=== PATIENT | female | born 1995 | race Caucasian/White ===

== ENCOUNTER → 2016-11-07 | Outpatient (CLI) | payer OTHER ==
--- NOTE | 2016-11-08 11:45 | US ---
EXAMINATION TYPE: US abdomen complete DATE OF EXAM: 11/07/2016 11:56 AM COMPARISON: NONE History: Left lower quadrant, right lower quadrant pain The liver span is within normal limits, no mass. Gallbladder shows no abnormal luminal echo, there is no wall thickening or pericholecystic fluid. Pancreas shows an unremarkable appearance as visualized . Common bile duct does not appear dilated. Spleen is normal. Right kidney is 10.3 cm, left kidney 10 .1 cm, no hydronephrosis bilaterally. Abdominal aorta shows no aneurysm. Visualized inferior vena cav a is unremarkable as seen. Bilateral ureteral jets are noted. IMPRESSION: No significant abnormality
--- NOTE | 2016-11-08 11:51 | US ---
Pelvic ultrasound HISTORY: Right and left lower quadrant pain, lower abdomen pain Grayscale, color Doppler imaging performed of the pelvis. Transabdominal pelvic ultrasound scanning. The uterus measures 6.4 x 2.6 x 4.1 cm. Uterus is anteverted. Endometrial stripe thickness is approxi mately 3 mm. No evident free fluid. Right ovary is 3.9 x 1.9 x 2.5 cm, left ovary is 3 x 1.5 x 3.5 cm. Follicles a re associated with both ovaries. IMPRESSION: No significant abnormalities evident.
== END | disposition home or self-care (01) ==
LOC: RADUSYALE 09:21
PROVIDERS: ATTEND Physician Assistant Medical
DX: R10.31 Right lower quadrant pain (principal); R10.32 Left lower quadrant pain
CPT/HCPCS: 76700; 76856